=== PATIENT | female | born 1935 | race Caucasian/White ===

== ENCOUNTER 2018-02-26 13:40 | Outpatient (CLI) | payer OTHER ==
[2015-07-21 18:11] VITALS: BP 138/61
--- NOTE | 2018-02-26 16:39 | Diagnostic Imaging Report ---
CAPRI ROWELL (CINDI) - OP [facility] [id number] [facility].[address] [id number] Report Submission Date: Feb 26, 2018 3:11:16 PM CDT Patient Study Name: CATHLEEN AGUILAR Date: Feb 26, 2018 1:54:25 PM CDT Modality Type: DX Gender: F Description: LOWER EXTREMITY : 35 Institution: [facility] Physician: CAPRI ROWELL (CINDI) - OP Left ankle History: Injured 6 weeks ago Three views of the left ankle were obtained which demonstrate a probable nondisplaced fracture at the tip of the medial malleolus. There is mild soft tissue swelling about the ankle which is more pronounced medially. The talar dome and ankle mortise are intact . There is a small plantar calcaneal spur. Chronic calcifications are present at the insertion site of the Achilles tendon consistent with chronic tendinitis. Impression: Probable nondisplaced fracture at the tip of the medial malleolus with overlying soft tissue swelling. Chronic calcifications at the insertion site of the Achilles tendon consistent with chronic tendinitis. Electronically signed on Feb 26, 2018 3:11:16 PM CDT by: Meghan ROJAS
== END 2018-02-26 13:42 ==
LOC: RAD 13:40
PROVIDERS: ATTEND Nurse Practitioner Family
DX: M25.572 Pain in left ankle and joints of left foot (principal); T14.90XA Injury, unspecified, initial encounter; X58.XXXA Exposure to other specified factors, initial encounter; Y92.9 Unspecified place or not applicable; Y93.9 Activity, unspecified; Y99.9 Unspecified external cause status
CPT/HCPCS: 73610

== ENCOUNTER 2018-10-17 13:47 | Outpatient (CLI) | payer OTHER ==
[2015-07-21 18:11] VITALS: BP 138/61
[2018-10-17 14:50] LABS: eGFR (Non-African) 38
[2018-10-17 17:49] LABS: APPEARANCE,URINE CLEAR (CLEAR); COLOR,URINE YELLOW (YELLOW); OCCULT BLOOD,URINE NEGATIVE (NEGATIVE); PH URINE 6.5 (5.0 - 8.0); UROBILINOGEN URINE 0.2 Eu (0.2-1.0)
[2018-10-17 17:50] LABS: AMORPHOUS SEDIMENT,UR FEW (NEGATIVE)
[2018-10-17 18:03] LABS: BASOPHILS % 0.5 (0.0-1.5); EOSINOPHILS % 0.8 % (0.0-6.8); MEAN CORPUSCULAR HEMOGLOBIN 31.2 pg (28.0-34.0); MONOCYTES % 4.4 % (0.0-11.0); NEUTROPHILS # 7.5 # k/uL (1.4-7.7)
== END 2018-10-17 13:50 ==
LOC: LAB 13:47
PROVIDERS: ATTEND Nurse Practitioner Family
DX: C41.4 Malignant neoplasm of pelvic bones, sacrum and coccyx (principal); R30.0 Dysuria; R19.7 Diarrhea, unspecified; R19.09 Other intra-abdominal and pelvic swelling, mass and lump
CPT/HCPCS: 36415; 80053; 81002; 85025; 85651; 86304; 87045; 87046; 87086; 87177; 87329; 87427; 87493

== ENCOUNTER 2019-07-24 14:53 | Outpatient (CLI) | payer OTHER ==
[2015-07-21 18:11] VITALS: BP 138/61
--- NOTE | 2019-07-28 16:32 | OP Clinic Progress Note ---
DATE OF VISIT: 07/24/2019 SUBJECTIVE: Heaven is an 84-year-old female presenting to clinic today for a right second toe ulcer on the medial side that began just this past Sunday. She spoke with and saw Zulma Andersen this week and was placed on doxycycline 100 mg b.i.d. which she started yesterday. She was also told and given mupirocin 2% ointment and told to utilize that three times daily. I told her she just needs to do that daily at this time. The patient states she is doing well and that she has also recently has finished her chemotherapy that ended in April for ovarian cancer. She states that she does not get a whole lot of pain, but does have some pain on that second toe of the right foot. 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 OBJECTIVE: Vitals: Temperature 97.2 degrees Fahrenheit, heart rate 62, respiration rate 18, blood pressure 132/77. O2 saturation is 97% on room air. Vascular: Palpable DP and PT pulses, right foot. Capillary refill time is less than 3 seconds to the toes right foot. There is no edema noted, right foot. Dermatologic: The right second toe has a slight red discoloration medially that looks to be more irritated rather than infected at this time. There is no real drainage at all. There is obvious hyperkeratotic tissue on the right second toe medial border at the PIPJ and this was debrided still showing an already slightly open wound centrally. This wound measures today overall at about 0.8 x 0.7 x 0.1 cm. The patient does not have any purulence or really any significant erythema at this time. I believe the cellulitis has improved greatly already. There are no other skin abnormalities or concerns on the right foot. Musculoskeletal: There is slight lateral deviation of the second toe at the PIPJ with a more prominent medial aspect of the PIPJ. This is pressing on the first toe IPJ laterally and is causing a corn to develop. There is pain on palpation at this medial second PIPJ site. The patient has no other gross abnormalities noted. There is not much of any significant hallux valgus, but it is perhaps just slight. This is on the right. Neurologic: Light touch sensation is diminished to the toes, right foot. ASSESSMENT AND PLAN: 1. [place], right second toe, medial PIPJ. 2. Peripheral neuropathy due to chemotherapy. 3. Cellulitis of the right second toe-improving. PROCEDURE #1: Sharp debridement down to and including the subcutaneous tissue layer with less than 20 sq cm was performed with a #15 blade today on the right second toe medial PIPJ area. This was cleansed with normal saline, dried and had triple antibiotic ointment and a Band-Aid applied. We then applied and gave the patient a couple of extra silicone toe pads to protect the second toe from rubbing on the first toe. The patient was encouraged to watch underneath the toe for the first week to make sure visually that she does not see any signs of irritation from the pad bunching up underneath. She was given information to order more if she likes them from online. She was told to finish her antibiotics and we will contact Zulma Andersen for culture results that were taken yesterday. It is already improving greatly, so likely she is doing well with the doxycycline. Return to clinic in two weeks to outpatient clinic and sooner to the ER if needed, meaning if it is on a weekend when I am not here. Otherwise, will see her in two weeks and make sure she is improving. The goal is to get this to heal and then keep it healed with appropriate pads and trimming the callus every once in a while. If this is a struggle then we can consider surgical management as long as she is not undergoing chemotherapy and we would probably make sure with her oncologist what kind of a time frame we need to wait after any chemotherapy ends to do surgery if she ends up on chemo again. She has ended her chemo in April most recently. The patient has no other questions and we will see her in two weeks. She is grateful for her visit and we are grateful to uZlma Andersen for send her our way. Matt Hickman D.P.M./[employer] [id number] /mab MTDD
== END 2019-07-24 15:23 ==
LOC: POD 14:53
PROVIDERS: ATTEND Podiatrist Foot & Ankle Surgery
DX: G62.0 Drug-induced polyneuropathy (principal); T45.1X5A Adverse effect of antineoplastic and immunosuppressive drugs, initial encounter; L84 Corns and callosities; L03.031 Cellulitis of right toe
CPT/HCPCS: 11042; 99213; G0463; A4554

== ENCOUNTER 2019-08-07 14:31 | Outpatient (CLI) | payer OTHER ==
[2015-07-21 18:11] VITALS: BP 138/61
--- NOTE | 2019-08-11 12:37 | OP Clinic Progress Note ---
DATE OF VISIT: 08/07/2019 SUBJECTIVE: Heaven is an 84-year-old female presenting to clinic today for follow up of a right second toe medial PIPJ corn/ulcer. The patient was seen by Zulma Andersen recently and then saw me soon after, after just barely starting her doxycycline and after having cultures done. She presents today for follow up after she had the wound debrided and dressed and silicone pads given to protect the toe. She has been using those faithfully on the second toe. She does not admit to any other issues or problems. She does not admit to any fevers, chills, nausea, vomiting, shortness of breath or chest pain. It sounds like she already received answers that her culture results were essentially negative. OBJECTIVE: Vitals: Temperature 98.1 degrees Fahrenheit, heart rate 68, respiration rate 18, blood pressure 146/76. O2 saturation is 92% on room air. Vascular: Palpable DP and PT pulses, right foot. Capillary refill time is less than 3 seconds to the toes right foot. There is no edema noted, right foot. Dermatologic: The right second toe has a slight hyperkeratotic lesion over the top of a thin stable eschar. There is no drainage at this time. There is no open lesion noted at this time. The overlying thin eschar/hyperkeratotic tissue as well was debrided today to intact thin eschar and skin. There is no erythema or drainage or any other warmth or signs of infection noted. The right third toe at the DIPJ does have a very small lesion that is not open, but is pre-ulcerative and dark purple in color. This appears to be close to opening from possibly pressure from the other side of the silicone toe pad that rolls up on its own. This is noted to the patient and it was encouraged that she begin using the toe pad on the third toe as well as protect that area. The patient does not have any erythema or open lesion or drainage noted on the third toe or anywhere else right foot. Musculoskeletal: There is slight lateral deviation of the second toe at the PIPJ at the more prominent medial aspect of the PIPJ. This is pressing on the IPJ of the first toe at the lateral side of the first toe. There is mild to no pain on palpation of the right second toe and third toe concerning areas. There is no other gross abnormalities noted. Neurologic: Light touch sensation is diminished to the toes, right foot. ASSESSMENT AND PLAN: 1. Right second and third toe corns. 2. Peripheral neuropathy due to chemotherapy. 3. Cellulitis-resolved. PROCEDURE #1: Pairing of hyperkeratotic tissue and thin eschar from the right second toe medial PIPJ area was performed today with a #15 blade down to intact thin eschar and epithelium. The patient tolerated the procedure well. The patient was encouraged to use a silicone toe pad on both the second and third toes as to protect those areas. We will have the patient return to clinic in two weeks for follow up and make sure the corns have stayed free of any opening and issues. At that point we will push her out further if needed. She was encouraged to continue using the silicone pads and to no longer need a Band Aid on the right second toe as it is not opened at all. If it opens she will need to put a Band Aid and antibiotic ointment on it. She has no other questions or concerns and we will see her in two weeks and then we will push her out probably a month or longer after that if it is looking great. We will consider and discuss surgical options if she would like to consider anything to prevent the further occurrence of these issues and not have to use silicone pads always. Matt Hickman D.P.M./[employer] [id number] /mb CRYSTAL
== END 2019-08-07 15:01 ==
LOC: POD 14:31
PROVIDERS: ATTEND Podiatrist Foot & Ankle Surgery
DX: L84 Corns and callosities (principal); G62.0 Drug-induced polyneuropathy; T45.1X5A Adverse effect of antineoplastic and immunosuppressive drugs, initial encounter
CPT/HCPCS: 11055; 99213; G0463; A4554